=== PATIENT | female | born 2000 | race African-American/Black ===

== ENCOUNTER 2019-08-30 04:01 | Inpatient (IN) | payer OTHER ==
[2019-08-30 04:25] LABS: Absolute Lymphocytes (CBC) 2.1 K/uL (0.7-4.9); Basophils % 0.4 % (0-1.3); Hematocrit 37.7 % (36.0-45.0); Lymphocytes % 13.7 % (15.3-44.8); MPV 8.5 fL (7.6-11.3)
[2019-08-30 04:34] LABS: Albumin 3.6 g/dL (3.4-5.0); Bilirubin Direct 0.2 mg/dL (0-0.2); Bilirubin Total 0.5 mg/dL (0.2-1.0); Potassium 3.5 mmol/L (3.5-5.1); Protein, Total 8.1 g/dL (6.4-8.2)
[2019-08-30] MEDS ORDERED: KETOROLAC 30 MG/ML INJ ONE (04:39)
[2019-08-30] MEDS ORDERED: MORPHINE 2 MG/ML SYR ONE (04:39)
[2019-08-30] MEDS ORDERED: NA CHLORIDE 0.9% 1,000 ML ONE ×3 (04:39→17:53)
[2019-08-30] MEDS ORDERED: ONDANSETRON 4 MG/2 ML VIAL ONE (04:42)
[2019-08-30] MEDS ORDERED: CEFTRIAXONE 1000 MG/VIAL ONE (05:08)
[2019-08-30] MEDS ORDERED: NA CHLORIDE 0.9% 50 ML IV ONE (05:09)
--- NOTE | 2019-08-30 07:54 | ER ---
Nurse's Notes [facility] Name: Bala Kearns Age: 18 yrs Sex: Female : 2000 Arrival Date: 08/30/2019 Time: 04:01 Bed 16 Private MD: Diagnosis: Abdominal tenderness;Elevated white blood cell count;Salpingitis and oophoritis-right;SARS-associated coronavirus as the cause of diseases classified elsewhere-covid 19 positive on 08/20/19 Presentation: 08/29 04:02 Chief complaint: Patient states: Reported pain in the lower abdomen, pt reports having ea diarrhea yesterday, states the pain radiates to her tailbone. EMS reports pt is positive for covid. Coronavirus screen: Prior COVID test collected on: August 20. Ebola Screen: No symptoms or risks identified at this time. Initial Sepsis Screen: Does the patient meet any 2 criteria? No. Patient's initial sepsis screen is negative. Does the patient have a suspected source of infection? No. Patient's initial sepsis screen is negative. Risk Assessment: Do you want to hurt yourself or someone else? Patient reports no desire to harm self or others. Onset of symptoms was August 30, 2019. 04:02 Method Of Arrival: EMS: [facility] ea 04:02 Acuity: JOSE 3 ea Triage Assessment: 04:06 General: Appears uncomfortable, Behavior is appropriate for age. Pain: Complains of ea pain in right lower quadrant and left lower quadrant Pain radiates to buttocks. 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 - Social history:: Smoking status: Patient denies any tobacco usage or history of. Screenin:05 Abuse screen: Denies threats or abuse. Nutritional screening: No deficits noted. ea Tuberculosis screening: No symptoms or risk factors identified. Fall Risk IV access (20 points). Assessment: 04:06 General: Appears uncomfortable, Behavior is crying. Pain: Complains of pain in left ea lower quadrant. Neuro: Level of Consciousness is awake, alert, obeys commands, Oriented to person, place, time, situation. Respiratory: Airway is patent Respiratory effort is even, unlabored, Respiratory pattern is regular, symmetrical. GI: Abdomen is non-distended, Reports diarrhea, nausea. Derm: Skin is pink, warm \T\ dry. 05:12 Reassessment: Patient and/or family updated on plan of care and expected duration. Pain ea level reassessed. Patient is alert, oriented x 3, equal unlabored respirations, skin warm/dry/pink. pt taken to CT. 05:37 Reassessment: Patient and/or family updated on plan of care and expected duration. Pain ea level reassessed. Patient is alert, oriented x 3, equal unlabored respirations, skin warm/dry/pink. Returned from CT. 07:30 Reassessment: US complete. sv 07:35 General: Appears in no apparent distress. comfortable, well developed, Behavior is sv calm, cooperative, appropriate for age. Pain: Denies pain. Neuro: Level of Consciousness is awake, alert, obeys commands, Oriented to person, place, time, situation, Moves all extremities. Full function. Respiratory: Airway is patent Respiratory effort is even, unlabored, Respiratory pattern is regular, symmetrical. Derm: Skin is intact, Skin is pink, warm \T\ dry. 08:36 Reassessment: Patient appears in no apparent distress at this time. No changes from sv previously documented assessment. Patient and/or family updated on plan of care and expected duration. Pain level reassessed. Patient is alert, oriented x 3, equal unlabored respirations, skin warm/dry/pink. 10:06 Reassessment: Patient appears in no apparent distress at this time. No changes from sv previously documented assessment. Patient and/or family updated on plan of care and expected duration. Pain level reassessed. Patient is alert, oriented x 3, equal unlabored respirations, skin warm/dry/pink. 12:11 Reassessment: Patient appears in no apparent distress at this time. Pt sleeping at this sv time. Will continue to monitor. 15:00 Reassessment: Patient appears in no apparent distress at this time. Patient and/or ls4 family updated on plan of care and expected duration. Pain level reassessed. Patient is alert, oriented x 3, equal unlabored respirations, skin warm/dry/pink. 16:00 Reassessment: Patient appears in no apparent distress at this time. Patient and/or ls4 family updated on plan of care and expected duration. Pain level reassessed. Patient is alert, oriented x 3, equal unlabored respirations, skin warm/dry/pink. 17:00 Reassessment: Patient appears in no apparent distress at this time. Patient and/or ls4 family updated on plan of care and expected duration. Pain level reassessed. Patient is alert, oriented x 3, equal unlabored respirations, skin warm/dry/pink. 18:00 Reassessment: Patient appears in no apparent distress at this time. Patient and/or ls4 family updated on plan of care and expected duration. Pain level reassessed. Patient is alert, oriented x 3, equal unlabored respirations, skin warm/dry/pink. 19:00 Reassessment: Patient appears in no apparent distress at this time. Patient and/or ls4 family updated on plan of care and expected duration. Pain level reassessed. Patient is alert, oriented x 3, equal unlabored respirations, skin warm/dry/pink. 20:09 Reassessment: Patient appears in no apparent distress at this time. Patient and/or ls4 family updated on plan of care and expected duration. Pain level reassessed. Patient is alert, oriented x 3, equal unlabored respirations, skin warm/dry/pink. Vital Signs: 04:02 BP 126 / 82; Pulse 81; Resp 18; Temp 98.6; Pulse Ox 100% on R/A; Weight 63.5 kg; Height ea 5 ft. 2 in. (157.48 cm); Pain 10/10; 05:37 BP 113 / 69; Pulse 80; Resp 18; Pulse Ox 100% ; ea 07:49 BP 108 / 65; Pulse 66; Resp 16; Pulse Ox 100% ; sv 10:20 BP 111 / 66; Pulse 67; Resp 16; Pulse Ox 100% ; sv 11:32 BP 108 / 66; Pulse 65; Resp 14; Pulse Ox 95% ; sv 13:34 BP 118 / 71; Pulse 99; Resp 16; Temp 97.5(O); Pulse Ox 96% ; sv 14:00 BP 102 / 65; Pulse 64; Resp 16; Pulse Ox 100% ; sv 15:00 BP 103 / 57; Pulse 70; Resp 16; Temp 97.4(O); Pulse Ox 100% on R/A; Pain 0/10; ls4 16:00 BP 111 / 70; Pulse 71; Resp 16; Temp 98.0(T); Pulse Ox 100% on R/A; ls4 18:00 BP 115 / 70; Pulse 66; Resp 16; Pulse Ox 100% on R/A; ls4 19:00 BP 110 / 75; Pulse 66; Resp 16; Pulse Ox 99% on R/A; ls4 20:00 BP 104 / 65; Pulse 68; Resp 16; Pulse Ox 99% on R/A; ls4 04:02 Body Mass Index 25.61 (63.50 kg, 157.48 cm) ea ED Course: 04:01 Patient arrived in ED. ea 04:05 Triage completed. ea 04:05 Arm band placed on right wrist. Patient placed in an exam room, on a stretcher, on ea pulse oximetry. 04:05 Patient has correct armband on for positive identification. Bed in low position. Call ea light in reach. 04:06 Toro Story MD is Attending Physician. bong 04:08 Inserted saline lock: 20 gauge in left antecubital area, using aseptic technique. Blood ds4 collected. 04:18 Milla Astudillo, RN is Primary Nurse. ea 05:39 CT Abd/Pelvis - IV Contrast Only In Process Unspecified. EDMS 07:30 US Transvaginal Study (Probe) Sent. sv 07:49 US Transvaginal Study (Probe) In Process Unspecified. EDMS 07:49 Primary Nurse role handed off by Milla Astudillo, HARSH sv 07:49 Bettye Tuttle RN is Primary Nurse. sv 07:50 Taco Hinojosa DO is Hospitalizing Provider. bong 08:20 First set of blood cultures drawn by me. sv 08:29 Second set of blood cultures drawn by me. sv 08:30 Assist provider with pelvic exam: Set up pelvic tray. Performed by Toro Story MD sv Specimens sent to lab. Patient tolerated well. 10:06 Awaiting bed assignment. sv 11:32 Awaiting bed assignment. sv 12:11 Awaiting bed assignment. sv 14:29 Awaiting bed assignment. sv 14:31 Report given to Suni HOUSE. sv 18:08 GC (GONORR/CHLAMYDIA) Probe: [employer] ordered verbal Sent. ls4 Administered Medications: 04:41 Drug: NS 0.9% 1000 ml Route: IV; Rate: 1 bolus; Site: left antecubital; ea 05:45 Follow up: Response: No adverse reaction; IV Status: Completed infusion; IV Intake: ea 1000ml 04:41 Drug: TORadol 30 mg Route: IVP; Site: left antecubital; ea 05:46 Follow up: Response: No adverse reaction; Pain is decreased ea 04:41 Drug: morphine 2 mg Route: IVP; Site: left antecubital; ea 05:46 Follow up: Response: No adverse reaction; Pain is decreased ea 04:41 Drug: Zofran (Ondansetron) 4 mg Route: IVP; Site: left antecubital; ea 05:46 Follow up: Response: No adverse reaction ea 05:31 Drug: Rocephin 1 grams Route: IV; Rate: per protocol; Site: left antecubital; ea 07:38 Not Given (Duplicate Order): Zithromax 1 grams PO once bong 08:36 Drug: Flagyl 500 mg Volume: 100 ml; Route: IVPB; Rate: 200 ml/hr; Infused Over: 30 sv mins; Site: left antecubital; 09:30 Follow up: Response: No adverse reaction; IV Status: Completed infusion; IV Intake: sv 100ml 08:36 Drug: NS 0.9% 1000 ml Route: IV; Rate: 125 ml/hr; Site: left antecubital; sv 18:01 Follow up: IV Status: Infusion continued; IV Intake: 1000ml ls4 10:06 Drug: Unasyn 3 grams Route: IVPB; Infused Over: 30 mins; Site: left antecubital; sv 10:35 Follow up: Response: No adverse reaction; IV Status: Completed infusion; IV Intake: sv 100ml 18:08 Drug: Zithromax 1000 mg Route: PO; ls4 Intake: 05:45 IV: 1000ml; Total: 1000ml. ea 09:30 IV: 100ml; Total: 1100ml. sv 10:35 IV: 100ml; Total: 1200ml. sv 18:01 IV: 1000ml; Total: 2200ml. ls4 Outcome: 07:53 Decision to Hospitalize by Provider. bong 21:36 Patient left the ED. fc Signatures: Dispatcher [employer] Bettye Escobar RN RN Toro Taveras MD MD cha Chretien, Fany, RN RN fc Keanu Barakat ds4 Milla Astudillo RN RN Suni Wright RN RN ls4
--- NOTE | 2019-08-30 07:54 | EDPHYS ---
Physician Documentation [facility] Name: Bala Kearns Age: 18 yrs Sex: Female : 2000 Arrival Date: 08/30/2019 Time: 04:01 Bed 16 Private MD: ED Physician Toro Story HPI: 08/29 04:17 This 18 yrs old Black Female presents to ER via EMS with complaints of sudden onset bong abdominal pain. 04:17 This 18 yrs old Black Female presents to ER via EMS with complaints of lower abd pain. bong 04:17 The patient presents with abdominal pain in the lower abdomen, abdominal distention in bong the lower abdomen. Onset: The symptoms/episode began/occurred just prior to arrival. 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 - Social history:: Smoking status: Patient denies any tobacco usage or history of. ROS: 04:19 Constitutional: Negative for fever, chills, and weight loss, Eyes: Negative for injury, bong pain, redness, and discharge, ENT: Negative for injury, pain, and discharge, Neck: Negative for injury, pain, and swelling, Cardiovascular: Negative for chest pain, palpitations, and edema, Respiratory: Negative for shortness of breath, cough, wheezing, and pleuritic chest pain, Back: Negative for injury and pain, : Negative for injury, bleeding, discharge, and swelling, MS/Extremity: Negative for injury and deformity, Skin: Negative for injury, rash, and discoloration, Neuro: Negative for headache, weakness, numbness, tingling, and seizure, Psych: Negative for depression, anxiety, suicide ideation, homicidal ideation, and hallucinations, Allergy/Immunology: Negative for hives, rash, and allergies, Endocrine: Negative for neck swelling, polydipsia, polyuria, polyphagia, and marked weight changes, Hematologic/Lymphatic: Negative for swollen nodes, abnormal bleeding, and unusual bruising. 04:19 Abdomen/GI: Positive for abdominal pain, abdominal cramps, abdominal distension, of the right lower quadrant and left lower quadrant. Exam: 04:19 Constitutional: This is a well developed, well nourished patient who is awake, alert, bong and in no acute distress. Head/Face: Normocephalic, atraumatic. Eyes: Pupils equal round and reactive to light, extra-ocular motions intact. Lids and lashes normal. Conjunctiva and sclera are non-icteric and not injected. Cornea within normal limits. Periorbital areas with no swelling, redness, or edema. ENT: Nares patent. No nasal discharge, no septal abnormalities noted. Tympanic membranes are normal and external auditory canals are clear. Oropharynx with no redness, swelling, or masses, exudates, or evidence of obstruction, uvula midline. Mucous membranes moist. Neck: Trachea midline, no thyromegaly or masses palpated, and no cervical lymphadenopathy. Supple, full range of motion without nuchal rigidity, or vertebral point tenderness. No Meningismus. Chest/axilla: Normal chest wall appearance and motion. Nontender with no deformity. No lesions are appreciated. Cardiovascular: Regular rate and rhythm with a normal S1 and S2. No gallops, murmurs, or rubs. Normal PMI, no JVD. No pulse deficits. Respiratory: Lungs have equal breath sounds bilaterally, clear to auscultation and percussion. No rales, rhonchi or wheezes noted. No increased work of breathing, no retractions or nasal flaring. Back: No spinal tenderness. No costovertebral tenderness. Full range of motion. Skin: Warm, dry with normal turgor. Normal color with no rashes, no lesions, and no evidence of cellulitis. MS/ Extremity: Pulses equal, no cyanosis. Neurovascular intact. Full, normal range of motion. Neuro: Awake and alert, GCS 15, oriented to person, place, time, and situation. Cranial nerves II-XII grossly intact. Motor strength 5/5 in all extremities. Sensory grossly intact. Cerebellar exam normal. Normal gait. Psych: Awake, alert, with orientation to person, place and time. Behavior, mood, and affect are within normal limits. 04:19 Abdomen/GI: Inspection: abdomen appears normal, Bowel sounds: active, Palpation: mild abdominal tenderness, moderate abdominal tenderness, in the right lower quadrant and left lower quadrant, Liver: no appreciated palpable abnormalities, Hernia: not appreciated. 08:04 : CVA tenderness, is absent, Pelvic Exam: External exam: is normal, no appreciated bong Bartholin's cyst, no erythema, not excoriated, no evidence of foreign body, no lesions, no ulcerations, no warts seen, Speculum exam: no bleeding is noted, no cervicitis, os that is closed, bimanual exam reveals cervical motion tenderness, os that is closed, normal sized uterus, discharge, yellow, the nurse was present for the exam, Bladder: is normal, Sexual behavior: the patient is sexually active, and reports a single partner. Vital Signs: 04:02 BP 126 / 82; Pulse 81; Resp 18; Temp 98.6; Pulse Ox 100% on R/A; Weight 63.5 kg; Height ea 5 ft. 2 in. (157.48 cm); Pain 10/10; 05:37 BP 113 / 69; Pulse 80; Resp 18; Pulse Ox 100% ; ea 07:49 BP 108 / 65; Pulse 66; Resp 16; Pulse Ox 100% ; sv 10:20 BP 111 / 66; Pulse 67; Resp 16; Pulse Ox 100% ; sv 11:32 BP 108 / 66; Pulse 65; Resp 14; Pulse Ox 95% ; sv 13:34 BP 118 / 71; Pulse 99; Resp 16; Temp 97.5(O); Pulse Ox 96% ; sv 14:00 BP 102 / 65; Pulse 64; Resp 16; Pulse Ox 100% ; sv 15:00 BP 103 / 57; Pulse 70; Resp 16; Temp 97.4(O); Pulse Ox 100% on R/A; Pain 0/10; ls4 16:00 BP 111 / 70; Pulse 71; Resp 16; Temp 98.0(T); Pulse Ox 100% on R/A; ls4 18:00 BP 115 / 70; Pulse 66; Resp 16; Pulse Ox 100% on R/A; ls4 19:00 BP 110 / 75; Pulse 66; Resp 16; Pulse Ox 99% on R/A; ls4 20:00 BP 104 / 65; Pulse 68; Resp 16; Pulse Ox 99% on R/A; ls4 04:02 Body Mass Index 25.61 (63.50 kg, 157.48 cm) ea MDM: 04:06 Patient medically screened. [facility] 04:20 Data reviewed: vital signs, nurses notes, lab test result(s), radiologic studies, CT bong scan. 04:20 Differential diagnosis: appendicitis, cholecystitis, Cholelithiasis, Ectopic , bong non-specific abd pain, Ovarian Torsion. Data interpreted: equipment monitor phototypesetting: rate is 81 beats/min, rhythm is regular, Pulse oximetry: on room air is 100 %. Test interpretation: by ED physician or midlevel provider:. Counseling: I had a detailed discussion with the patient and/or guardian regarding: the historical points, exam findings, and any diagnostic results supporting the discharge/admit diagnosis, lab results, radiology results, the need for outpatient follow up, for definitive care, an OB/Gyne specialist. 07:41 Physician consultation: Sylvia Loo MD and will see patient in the hospital, admit bong to the hospitalist. ED course: dr betts want hospitalist to admit, begin antibiotics, ivf and pain meds. 08:04 ED course: covid positive 08/20/19.. [facility] 08/29 04:02 Order name: Basic Metabolic Panel; Complete Time: 05:52 08/29 04:02 Order name: CBC with Diff; Complete Time: 05:52 08/29 04:02 Order name: Hepatic Function; Complete Time: 05:52 08/29 04:02 Order name: Lipase; Complete Time: 05:52 08/29 04:34 Order name: Urine Culture [facility] 08/29 06:28 Order name: ESR; Complete Time: 07:56 jmm 08/29 04:16 Order name: CT Abd/Pelvis - IV Contrast Only [facility] 08/29 07:56 Order name: Procalcitonin [facility] 08/29 07:56 Order name: Lactate [facility] 08/29 07:56 Order name: Blood Culture Adult (2) [facility] 08/29 18:00 Order name: GC (GONORR/CHLAMYDIA) Probe: Mat Cutter ordered verbal ls4 08/29 04:02 Order name: IV Saline Lock; Complete Time: 04:08 08/29 04:02 Order name: Labs collected and sent; Complete Time: 04:08 08/29 04:02 Order name: Urine Dipstick-Ancillary (obtain specimen); Complete Time: 04:42 08/29 04:02 Order name: Urine Test (obtain specimen); Complete Time: 04:42 08/29 06:37 Order name: US Transvaginal Study (Probe) [facility] 08/29 06:37 Order name: Pelvic Exam Setup; Complete Time: 07:04 bong Administered Medications: 04:41 Drug: NS 0.9% 1000 ml Route: IV; Rate: 1 bolus; Site: left antecubital; ea 05:45 Follow up: Response: No adverse reaction; IV Status: Completed infusion; IV Intake: ea 1000ml 04:41 Drug: TORadol 30 mg Route: IVP; Site: left antecubital; ea 05:46 Follow up: Response: No adverse reaction; Pain is decreased ea 04:41 Drug: morphine 2 mg Route: IVP; Site: left antecubital; ea 05:46 Follow up: Response: No adverse reaction; Pain is decreased ea 04:41 Drug: Zofran (Ondansetron) 4 mg Route: IVP; Site: left antecubital; ea 05:46 Follow up: Response: No adverse reaction ea 05:31 Drug: Rocephin 1 grams Route: IV; Rate: per protocol; Site: left antecubital; ea 07:38 Not Given (Duplicate Order): Zithromax 1 grams PO once [facility] 08:36 Drug: Flagyl 500 mg Volume: 100 ml; Route: IVPB; Rate: 200 ml/hr; Infused Over: 30 sv mins; Site: left antecubital; 09:30 Follow up: Response: No adverse reaction; IV Status: Completed infusion; IV Intake: sv 100ml 08:36 Drug: NS 0.9% 1000 ml Route: IV; Rate: 125 ml/hr; Site: left antecubital; sv 18:01 Follow up: IV Status: Infusion continued; IV Intake: 1000ml ls4 10:06 Drug: Unasyn 3 grams Route: IVPB; Infused Over: 30 mins; Site: left antecubital; sv 10:35 Follow up: Response: No adverse reaction; IV Status: Completed infusion; IV Intake: sv 100ml 18:08 Drug: Zithromax 1000 mg Route: PO; ls4 Disposition: 08/30/19 07:53 Hospitalization ordered by Taco Hinojosa for Inpatient Admission. Preliminary diagnosis are Abdominal tenderness, Elevated white blood cell count, Salpingitis and oophoritis - right, SARS-associated coronavirus as the cause of diseases classified elsewhere - covid 19 positive on 08/20/19. - Bed requested for Telemetry/MedSurg (Inpatient). - Status is Inpatient Admission. fc - Condition is Stable. - Problem is new. - Symptoms have improved. Signatures: Dispatcher [employer] EDAL Bettye Tuttle, RN Vannesa Lindquist RN RN dw Anderson, Corey, MD MD cha Chretien, Felicia, RN RN Milla Astudillo RN RN ea Stewart, Lisa RN RN ls4 Corrections: (The following items were deleted from the chart) 06:29 06:28 WESTERGREN SEDRATE+H.LAB.BRZ ordered. EDAL EDMS 06:36 06:32 Pelvis Complete ordered. EDAL EDMS 08:03 07:53 Hospitalization Ordered by Taco Hinojosa DO for Inpatient Admission. Preliminary bong diagnosis is Abdominal tenderness; Elevated white blood cell count; Salpingitis and oophoritis - right. Bed requested for Telemetry/MedSurg (Inpatient). Status is Inpatient Admission. Condition is Stable. Problem is new. Symptoms have improved. bong 08:55 06:38 GC (Gonorr/Clamydia) Probe+R.LAB.BRZ ordered. EDAL EDMS 18:45 08:03 08/30/2019 07:53 Hospitalization Ordered by Taco Hinojosa DO for Inpatient dw Admission. Preliminary diagnosis is Abdominal tenderness; Elevated white blood cell count; Salpingitis and oophoritis - right; SARS-associated coronavirus as the cause of diseases classified elsewhere - covid 19 positive on 08/20/19. Bed requested for Telemetry/MedSurg (Inpatient). Status is Inpatient Admission. Condition is Stable. Problem is new. Symptoms have improved. bong 21:36 18:45 08/30/2019 07:53 Hospitalization Ordered by Taco Hinojosa DO for Inpatient fc Admission. Preliminary diagnosis is Abdominal tenderness; Elevated white blood cell count; Salpingitis and oophoritis - right; SARS-associated coronavirus as the cause of diseases classified elsewhere - covid 19 positive on 08/20/19. Bed requested for Telemetry/MedSurg (Inpatient). Status is Inpatient Admission. Condition is Stable. Problem is new. Symptoms have improved. dw
[2019-08-30] MEDS ORDERED: METRONIDAZOLE 500mg IVPB 500 MG/100 ML BAG IV ONE (08:10)
[2019-08-30] MEDS ORDERED: AMPICILLIN/SULBACT 3 GM in NA CHLORIDE 0.9% 100 ML IVPB ONE (08:15)
--- NOTE | 2019-08-30 08:32 | RAD REPORT ---
EXAM DESCRIPTION: US - Transvaginal Study Probe - 08/30/2019 7:48 am CLINICAL HISTORY: ABD PAIN COMPARISON: Abdomen Pelvis W Contrast dated 08/30/2019 TECHNIQUE: Endovaginal sonography was performed. FINDINGS: Endovaginal sonography was performed and correlated with the earlier CT study. Uterine siz e is normal. No myometrial mass identifiable. Endometrial stripe is 6 mm with no focal endometrial ab normality identifiable. Both ovaries are identifiable. Blood flow seen in the ovarian stroma. A 19 millimeter right ovarian c yst is identified low-level internal echoes. Heterogeneous poorly defined tissue is seen in the right adnexa. This has a somewhat tubular configuration consistent with the CT finding. Tubo-ovarian absce ss would be a primary consideration and can be correlated with the lab and clinical findings. Hemorrh agic cyst is not suspected. No abnormal free fluid identifiable. IMPRESSION: No uterine abnormality or ovarian parenchymal abnormality seen. Heterogeneous poorly defined tissue in the right adnexa. Findings when correlated with the CT study a re suspicious for tubo-ovarian abscess.
--- NOTE | 2019-08-30 10:13 | RAD REPORT ---
EXAM DESCRIPTION: CT - Abdomen Pelvis W Contrast - 08/30/2019 6:38 am CLINICAL HISTORY: The patient is 18 years old and is Female; ABD PAIN TECHNIQUE: Axial computed tomography images of the abdomen and pelvis with intravenous contrast. S agittal and coronal reformatted images were created and reviewed. This CT exam was performed using one or more of the following dose reduction techniques: automated exposure control, adjustment of t he mA and/or kV according to patient size, and/or use of iterative reconstruction technique. COMPARISON: No relevant prior studies available. FINDINGS: LUNG BASES: Unremarkable. No mass. No consolidation. ABDOMEN: LIVER: Unremarkable. No mass. GALLBLADDER AND BILE DUCTS: No calcified stones. No ductal dilation. PANCREAS: No ductal dilation. No mass. SPLEEN: Unremarkable. ADRENALS: Unremarkable. No mass. KIDNEYS AND URETERS: Unremarkable. The kidneys enhance symmetrically. No obstructing renal or ur eteral calculus is seen. No hydronephrosis or hydroureter. No perinephric fluid or stranding. STOMACH AND BOWEL: The stomach is moderately distended with food contents. The small bowel dista lly is fluid-filled and prominent with suggestion of mucosal thickening. The remainder the small santi l is normal in appearance. A moderate amount stool is present throughout colon. There is no bowel obs truction. PELVIS: APPENDIX: The visualized portions of the appendix appear normal. However, the tip is not seen. BLADDER: Unremarkable. No mass. REPRODUCTIVE: A 1.9 cm right ovarian cyst is present. Tubular structure within the right lower quadrant is present concerning for dilated fallopian. The uterus is unremarkable. ABDOMEN and PELVIS: INTRAPERITONEAL SPACE: A moderate amount of free fluid is present within the pelvis. BONES/JOINTS: No acute fracture. SOFT TISSUES: The soft tissues are normal. VASCULATURE: Unremarkable. No abdominal aortic aneurysm. LYMPH NODES: Unremarkable. No enlarged lymph nodes. IMPRESSION: 1. Findings suggest dilated fallopian tube on the right. Moderate fluid and inflammation is also present within the right lower quadrant and adnexa. Findings may be secondary to a tubo-ovar ashley abscess. Further evaluation with pelvic ultrasound is recommended. 2. Visualized portions of the appendix are normal. However, the appendix is not seen in its entirety. Given the inflammation and fluid within the right lower quadrant, an orally contrasted study may be useful to further delineate the entire appendix. 3. Inflamed distal small bowel loops suggesting an enteritis. Electronically signed by: Ruchi Mandujano MD 08/30/2019 6:13 AM CDT Due to temporary technical issues with the PACS/Fluency reporting system, reports are being signed by the in house radiologist without review as a courtesy to ensure prompt reporting. The interpreting r adiologist is fully responsible for the content of the report.
[2019-08-30] MEDS ORDERED: AZITHROMYCIN 250 MG TAB ONE (17:53)
--- NOTE | 2019-08-30 18:27 | P.HP ---
Certification for Inpatient With expected LOS: >2 Midnights Patient will require the following post-hospital care: None Practitioner: I am a practitioner with admitting privileges, knowledge of patient current condition, hospital course, and medical plan of care. Services: Services provided to patient in accordance with Admission requirements found in Title 42 Section 412.3 of the Code of Federal Regulations <Thong rAmenta - Last Filed: 08/30/19 18:33> Patient History Date of Service: 08/30/19 Reason for admission: Tubal abscess History of Present Illness: 18-year-old female with no significant past medical history presents to the emergency room complaining of sudden onset of right pelvic pain. Patient states that she woke up this morning with complaints of lower abdominal pain. Patient tested positive for COVID and was self quarantine eating at her great grandmother's house alone. Patient has no respiratory issues or c omplications from Covid so far. In the emergency room CT abdomen pelvis with findings suggest dilated fallopian tube on the right. Moderate fluid and inflammation is also present within the right lower quadrant and adnexa. Findings may be secondary to a tubo-ovarian abscess. Transvaginal ultrasound confirming CT findings. relief map modeler was consulted and patient is to undergo surgical procedure to address tubal abscess. On physical exam patient is calm. Abdominal pain has improved after pain medication. She is alert and oriented x3 and in no distress. In the ER lab work shows a slightly elevated white cell count of 15.7 with an elevated ESR of 53. Vitals are stable and patient is afebrile. Patient be started on IV antibiotics. Patient will be admitted and further evaluated. Home medications list reviewed: Yes - Past Medical/Surgical History Diabetic: No Past Medical History: Patient denies medical history Past Surgical History: Patient denies surgical history - Family History Family History: Reviewed- Non-Contributory - Social History Smoking Status: Never smoker Alcohol use: No CD- Drugs: No Caffeine use: No Place of Residence: Home <CarihermanchatonancyThong - Last Filed: 08/30/19 18:33> Date of Service: 08/30/19 - Past Medical/Surgical History Past Medical History: Patient denies medical history Psychosocial/ Personal History: Patient lives at home <Taco Hinojosa - Last Filed: 08/30/19 19:04> Allergies No Known Allergies Allergy (Unverified 08/30/19 06:29) Review of Systems General: As per HPI Eyes: Unremarkable ENT: Unremarkable Respiratory: Unremarkable Cardiovascular: Unremarkable Gastrointestinal: Unremarkable Genitourinary: As per HPI Musculoskeletal: Unremarkable Neurological: Unremarkable <Thong Armenta - Last Filed: 08/30/19 18:33> Physical Examination - Vital Signs Temperature: 98.6 F Blood Pressure: 108/65 Pulse: 66 Respirations: 18 Pulse Ox (%): 100 (RA) - Physical Exam General: Alert, In no apparent distress, Oriented x3 HEENT: Atraumatic, Normocephalic, PERRLA Neck: Supple, Other (Trachea midline) Respiratory: Clear to auscultation bilaterally, Normal air movement Cardiovascular: No edema, Normal pulses, Regular rate/rhythm, Normal S1 S2 Gastrointestinal: Normal bowel sounds, Soft and benign, Non-distended Musculoskeletal: No clubbing, No swelling, No contractures Integumentary: No rashes, No breakdown, No significant lesion Neurological: Normal gait, Normal speech, Normal strength at 5/5 x4 extr Urinary: Other (Mild right pelvic pain with palpation) - Studies Laboratory Data (last 24 hrs) 08/30/19 04:05: WBC 15.7 H, Hgb 12.9, Hct 37.7, Plt Count 357 08/30/19 04:05: Sodium 141, Potassium 3.5, BUN 6 L, Creatinine 0.89, Glucose 94, Total Bilirubin 0.5, AST 10 L, ALT 11 L, Alkaline Phosphatase 64, Lipase 78 <Thong Armenta - Last Filed: 08/30/19 18:33> - Studies Laboratory Data (last 24 hrs) 08/30/19 04:05: WBC 15.7 H, Hgb 12.9, Hct 37.7, Plt Count 357 08/30/19 04:05: Sodium 141, Potassium 3.5, BUN 6 L, Creatinine 0.89, Glucose 94, Total Bilirubin 0.5, AST 10 L, ALT 11 L, Alkaline Phosphatase 64, Lipase 78 <Taco Hinojosa - Last Filed: 08/30/19 19:04> Assessment and Plan - Plan Impression: Tubal abscess: Plan: Tubal abscess: CT scan with findings suggestive of tubal abscess verified by transvaginal ultrasound. jacquard lace weaver consulted. Patient is continue IV antibiotics of the Unasyn and Flagyl for now with possible surgical intervention to remove abscess if necessary. Will continue IV fluids and pain control. Will await pending cultures blood and urine. Discharge Plan: Home Plan to discharge in: 48 Hours - Advance Directives Does patient have a Living Will: No Does patient have a Durable POA for Healthcare: No - Code Status/Comfort Care Code Status Assessed: Yes Time Spent Managing Pts Care (In Minutes): 55 <Thong Armenta - Last Filed: 08/30/19 18:33> - Plan Case discussed at length with PA. Agree with evaluation, assessment and plan of care. Case also discuss with gynecology. Patient will continue with IV antibiotic therapy-Unasyn and Flagyl. Blood cultures obtained. Await recommendations by gynecology. Anticipate improvement with antibiotics. If no improvement patient may require surgical intervention. I will turn the service over to the hospitalist team tomorrow. I will go over the plan of care with him. <Taco Hinojosa - Last Filed: 08/30/19 19:04>
[2019-08-30] MEDS ORDERED: TRAMADOL HCL 50 MG TAB PO PRN (20:03)
[2019-08-30] MEDS ORDERED: KETOROLAC 30 MG/ML INJ IV PRN (20:03)
[2019-08-30] MEDS ORDERED: HYDROCODONE/APAP 7.5/325 MG TAB PO PRN (20:03)
[2019-08-30] MEDS: AMPICILLIN/SULBACT 3 GM in NA CHLORIDE 0.9% 100 ML IVPB SCH ×2 (20:03→22:50)
[2019-08-30] MEDS ORDERED: ONDANSETRON 4 MG/2 ML VIAL IV PRN (20:03)
[2019-08-30] MEDS ORDERED: ACETAMINOPHEN 500 MG TAB PO PRN (20:03)
[2019-08-30] MEDS: METRONIDAZOLE 500mg IVPB 500 MG/100 ML BAG IV SCH ×2 (22:02→22:48)
[2019-08-30] MEDS ORDERED: AMPICILLIN/SULBACTAM 3GM/VIAL ONE (22:29)
[2019-08-30 23:09] VITALS: BMI 25.6
[2019-08-30] MEDS ORDERED: NA CHLORIDE 0.9% 100 ML IV ONE (23:20)
[2019-08-31] MEDS ORDERED: METRONIDAZOLE 500mg IVPB 500 MG/100 ML BAG IV SCH (01:00)
[2019-08-31 06:32] LABS: Absolute Lymphocytes (CBC) 2.1 K/uL (0.7-4.9); Basophils % 0.7 % (0-1.3); Hematocrit 35.6 % (36.0-45.0); Lymphocytes % 17.8 % (15.3-44.8); MPV 8.3 fL (7.6-11.3); RBC Red Blood Cell Count 4.37 M/uL (3.86-4.86)
[2019-08-31 06:52] LABS: ALT/SGPT 12 U/L (12-78); AST/SGOT 13 U/L (15-37); Albumin 3.2 g/dL (3.4-5.0); Alkaline Phosphatase 51 U/L (45-117); BUN Blood Urea Nitrogen 5 mg/dL (7-18); Bicarbonate 27 mmol/L (21-32); Bilirubin Total 0.7 mg/dL (0.2-1.0); Glucose Level 83 mg/dL (74-106); Magnesium 2.1 mg/dL (1.8-2.4); Potassium 3.5 mmol/L (3.5-5.1); Protein, Total 7.3 g/dL (6.4-8.2); Sodium Level 143 mmol/L (136-145)
[2019-08-31 08:44] LABS: Urine Appearance CLEAR; Urine Bilirubin NEGATIVE (NEG); Urine Blood NEGATIVE (NEG); Urine Color YELLOW; Urine Glucose NEGATIVE (NEG); Urine Protein NEGATIVE (NEG); Urine pH 6.5 (5.0-7.0)
[2019-08-31] MEDS: METRONIDAZOLE 500mg IVPB 500 MG/100 ML BAG IV SCH ×2 (08:46→16:02)
[2019-08-31 08:49] LABS: Urine Microscopic Reflex ORDER UMIC
[2019-08-31 08:59] LABS: Urine Bacteria <20 /HPF (<20); Urine RBC <5 /HPF (NONE SEEN)
[2019-08-31 09:00] LABS: Urine Culture Reflex Order REFLEXED
[2019-08-31] MEDS: AMPICILLIN/SULBACT 3 GM in NA CHLORIDE 0.9% 100 ML IVPB SCH ×2 (10:13→16:36)
--- NOTE | 2019-08-31 10:18 | P.CNS ---
Date of Consult: 08/30/[address] Sylvia Loo service: This 18 year old female patient is lying prone talking on her cell phone and in no distress. She presented to the ED this am with complaints of severe pelvic pain for about 48 hours which was getting worse. Upon admission she was afebrile, no nausea or vomiting. A CT abd and pelvis and TVUS were done, confirming a probable Right TOA/PID, WBC of 15.3. She had been staying alone at home as she was quarantining after testing positive for COVID with symptoms of fatigue and malaise, loss of taste and smell, on August 20, for the last 16 days. Those symptoms had completely resolved during her quarantine. She is sexually active with a new partner about 1 1/2 months, using condoms for control. She usually has normal, monthly menstrual cycles, but these became irregular during July, since she had 2 cycles in the month of July, very unusual for her, and another with LMP 08/15/2019. She denies any dysmenorrhea or dyspareunia. Her abdominal exam is grossly normal, no pain to light palpation. She used Plan B x 1 dose at the beginning of July, likely causing her irregular bleeding. She has already been given Rocephin 1 gm IV, Unasyn and Flagyl IV. Recommend 1 gm Azithromycin PO now. Swab for GC was collected during her exam upon admission. She will be admitted to the 4th floor due to her COVID status and continue IV antibiotics. Do not recommend surgical intervention at this time since she is now pain free and afebrile. Plan to discharge tomorrow if her WBC is coming down and continue PO antibiotics for [address] scan and TVUS in 1 week to monitor with f/u in our office.
--- NOTE | 2019-08-31 11:13 | P.PN ---
Subjective Date of Service: 08/31/19 Chief Complaint: Tubal abscess Subjective: No new changes Review of Systems 10-point ROS is otherwise unremarkable Physical Examination - Vital Signs Temperature: 97.2 F Blood Pressure: 121/66 Pulse: 92 Respirations: 16 Pulse Ox (%): 100 - Physical Exam General: Alert, In no apparent distress, Oriented x3 HEENT: Atraumatic, Normocephalic Neck: Supple, 2+ carotid pulse no bruit Respiratory: Clear to auscultation bilaterally, Normal air movement Cardiovascular: Normal pulses, Regular rate/rhythm Capillary refill: <2 Seconds Gastrointestinal: Soft and benign, W/out hepatosplenomegaly Musculoskeletal: No clubbing, No swelling Integumentary: No rashes Neurological: Normal speech, Normal strength at 5/5 x4 extr Lymphatics: No axilla or inguinal lymphadenopathy - Studies Laboratory Tests 08/30/19 08/30/19 08/30/19 04:05 04:05 04:05 WBC 15.7 H RBC 4.60 Hgb 12.9 Hct 37.7 MCV 82.0 MCH 28.0 MCHC 34.2 RDW 13.5 Plt Count 357 MPV 8.5 Neutrophils % 79.8 H Lymphocytes % 13.7 L Monocytes % 5.1 Eosinophils % 1.0 Basophils % 0.4 Absolute Neutrophils 12.5 H Absolute Lymphocytes 2.1 Absolute Monocytes 0.8 Absolute Eosinophils 0.2 Absolute Basophils 0.1 ESR [place]gren 53 H Sodium 141 Potassium 3.5 Chloride 106 Carbon Dioxide 25 BUN 6 L Creatinine 0.89 Estimated GFR 81 L Glucose 94 Lactic Acid Calcium 9.3 Total Bilirubin 0.5 Direct Bilirubin 0.2 AST 10 L ALT 11 L Alkaline Phosphatase 64 Serum Total Protein 8.1 Albumin 3.6 Globulin 4.5 H Albumin/Globulin Ratio 0.8 L Lipase 78 Procalcitonin C.trachomatis RNA (TMA) N.gonorrhoeae RNA (TMA) 08/30/19 08/30/19 08/30/19 06:37 08:29 08:29 WBC RBC Hgb Hct MCV MCH MCHC RDW Plt Count MPV Neutrophils % Lymphocytes % Monocytes % Eosinophils % Basophils % Absolute Neutrophils Absolute Lymphocytes Absolute Monocytes Absolute Eosinophils Absolute Basophils ESR W[place]gren Sodium Potassium Chloride Carbon Dioxide BUN Creatinine Estimated GFR Glucose Lactic Acid 0.8 Calcium Total Bilirubin Direct Bilirubin AST ALT Alkaline Phosphatase Serum Total Protein Albumin Globulin Albumin/Globulin Ratio Lipase Procalcitonin < 0.05 C.trachomatis RNA (TMA) Cancelled N.gonorrhoeae RNA (TMA) Cancelled Assessment & Plan Physician Review Additional Text: Pelvic inflammatory disease with likely tubo-ovarian abscess Appreciate help from OBGYN Continue antibiotic Pain controlled well CT scan with findings suggestive of tubal abscess verified by transvaginal ultrasound COVID 19 Asymptomatic Monitor closely Not hypoxic Plan Possible Dc in a.m. if afebrile and pain is controlled Dc with antibiotics for 2 weeks time Follow up with OBGYN Time Spent Managing Pts Care (In Minutes): 38
--- NOTE | 2019-08-31 12:21 | P.CNS ---
Date of Consult: 08/31/19 Subjective: Patient is a 18-year-old female with no significant past medical history who presents to the ED where the worsening right pelvic pain. Patient examined at bedside. Patient reports about 4 days ago, waking up in the middle of the night with severe right sided pelvic pain. Patient also tested positive for Covid 19 on August 20 with symptoms of loss of smell and taste which have completely resolved. Patient found to have leukocytosis and tubal ovarian abscess which I have been consulted for. Past medical/surgical history: Denies Family history: noncontributory Social history: Denies tobacco and alcohol use. Reports sexual activity with one partner Allergies: NKDA Active Medications Acetaminophen (Tylenol -Extra Strength) 500 mg PO Q4HP PRN PRN Reason: TEMP > 101' F Stop: 09/29/19 20:04 Hydrocodone Bitart/Acetaminophen ([place] 7.5/325 Mg) 1 tab PO Q6H PRN PRN Reason: Pain scale 5-7 (Moderate) Stop: 09/29/19 20:04 Enoxaparin Sodium (Lovenox 40 Mg Inj) 40 mg SQ DAILY [facility] Stop: 09/30/19 09:01 Ampicillin Sodium/Sulbactam (Sodium 3 gm/ Sodium Chloride) 100 mls @ 200 mls/hr IVPB Q8HR GIUSEPPE; Protocol Stop: 09/29/19 20:04 Last Admin: 08/31/19 10:13 Dose: 100 mls Documented by: Metronidazole/Sodium Chloride (Flagyl 500mg/100 Ml Iv Premix) 500 mg in 100 mls @ 200 mls/hr IV Q8HR GIUSEPPE; Protocol Stop: 09/29/19 20:04 Last Admin: 08/31/19 08:46 Dose: 100 mls Documented by: Ketorolac Tromethamine (Toradol) 30 mg IV Q8H PRN PRN Reason: Pain scale 5-7 (Moderate) Stop: 09/04/19 20:04 Ondansetron HCl (Zofran) 4 mg IV Q6HP PRN PRN Reason: NAUSEA / VOMITING Stop: 09/29/19 20:04 Sodium Chloride (Normal Saline Flush) 10 ml IV BID GIUSEPPE Stop: 09/29/19 21:01 Last Admin: 08/31/19 08:46 Dose: 10 ml Documented by: Tramadol HCl (Ultram) 50 mg PO TID PRN PRN Reason: Pain scale 2-4 (Mild) Stop: 09/29/19 20:04 ROS: CV: Denies chest pain RESP: Denies shortness of breath and cough : Denies dysuria, reports right side pelvic pain improving GI:Denies nausea, vomiting and diarrhea Objective: Temp Pulse Resp BP Pulse Ox 97.2 F 92 H 16 121/66 100 08/31/19 11:13 08/31/19 11:13 08/31/19 11:13 08/31/19 11:13 08/31/19 11:13 Labs: Sodium 143, potassium 3.5, BUN 5, creatinine 0.58, albumin 3.2, WBC 11.8, hemoglobin 12.3, hematocrit 35.6 Abd/pelvis CT 08/29: EXAM DESCRIPTION: CT - Abdomen Pelvis W Contrast - 08/30/2019 6:38 am CLINICAL HISTORY: The patient is 18 years old and is Female; ABD PAIN TECHNIQUE: Axial computed tomography images of the abdomen and pelvis with intravenous contrast. Sagittal and coronal reformatted images were created and reviewed. This CT exam was performed using one or more of the following dose reduction techniques: automated exposure control, adjustment of the mA and/or kV according to patient size, and/or use of iterative reconstruction technique. COMPARISON: No relevant prior studies available. FINDINGS: LUNG BASES: Unremarkable. No mass. No consolidation. ABDOMEN: LIVER: Unremarkable. No mass. GALLBLADDER AND BILE DUCTS: No calcified stones. No ductal dilation. PANCREAS: No ductal dilation. No mass. SPLEEN: Unremarkable. ADRENALS: Unremarkable. No mass. KIDNEYS AND URETERS: Unremarkable. The kidneys enhance symmetrically. No obstructing renal or ureteral calculus is seen. No hydronephrosis or hydroureter. No perinephric fluid or stranding. STOMACH AND BOWEL: The stomach is moderately distended with food contents. The small bowel distally is fluid-filled and prominent with suggestion of mucosal thickening. The remainder the small bowel is normal in appearance. A moderate amount stool is present throughout colon. There is no bowel obstruction. PELVIS: APPENDIX: The visualized portions of the appendix appear normal. However, the tip is not seen. BLADDER: Unremarkable. No mass. REPRODUCTIVE: A 1.9 cm right ovarian cyst is present. Tubular structure within the right lower quadrant is present concerning for dilated fallopian. The uterus is unremarkable. ABDOMEN and PELVIS: INTRAPERITONEAL SPACE: A moderate amount of free fluid is present within the pelvis. BONES/JOINTS: No acute fracture. SOFT TISSUES: The soft tissues are normal. VASCULATURE: Unremarkable. No abdominal aortic aneurysm. LYMPH NODES: Unremarkable. No enlarged lymph nodes. IMPRESSION: 1. Findings suggest dilated fallopian tube on the right. Moderate fluid and inflammation is also present within the right lower quadrant and adnexa. Findings may be secondary to a tubo-ovarian abscess. Further evaluation with pelvic ultrasound is recommended. 2. Visualized portions of the appendix are normal. However, the appendix is not seen in its entirety. Given the inflammation and fluid within the right lower quadrant, an orally contrasted study may be useful to further delineate the entire appendix. 3. Inflamed distal small bowel loops suggesting an enteritis. Transvaginal US 08/29: EXAM DESCRIPTION: US - Transvaginal Study Probe - 08/30/2019 7:48 am CLINICAL HISTORY: ABD PAIN COMPARISON: Abdomen Pelvis W Contrast dated 08/30/2019 TECHNIQUE: Endovaginal sonography was performed. FINDINGS: Endovaginal sonography was performed and correlated with the earlier CT study. Uterine size is normal. No myometrial mass identifiable. Endometrial stripe is 6 mm with no focal endometrial abnormality identifiable. Both ovaries are identifiable. Blood flow seen in the ovarian stroma. A 19 millimeter right ovarian cyst is identified low-level internal echoes. Heterogeneous poorly defined tissue is seen in the right adnexa. This has a somewhat tubular configuration consistent with the CT finding. Tubo-ovarian abscess would be a primary consideration and can be correlated with the lab and clinical findings. Hemorrhagic cyst is not suspected. No abnormal free fluid identifiable. IMPRESSION: No uterine abnormality or ovarian parenchymal abnormality seen. Heterogeneous poorly defined tissue in the right adnexa. Findings when correlated with the CT study are suspicious for tubo-ovarian abscess. ROS: General: Awake, alert, pleasant CV: S1,S2 RESP: Good breath sounds ABD: mild tenderness to suprapubic area Extremities: No edema Assessment and plan: Leukocytosis, blood cultures show no growth to date Tubal Ovarian abscess, pain improving, afebrile Covid 19 infection, asymptomatic Protein calorie malnourished Currently on Unasyn and Flagyl Upon discharge recommend Flagyl 500mg PO BID and Augmentin 500mg PO Q8h for total of 2 weeks Will continue to monitor Thank you for consult Patient discussed with Dr. Manuel
[2019-08-31] MEDS: ENOXAPARIN 40 MG/0.4 ML SQ SCH (16:02)
[2019-08-31 21:36] VITALS: O2SAT 95
[2019-09-01] MEDS: AMPICILLIN/SULBACT 3 GM in NA CHLORIDE 0.9% 100 ML IVPB SCH ×2 (00:16→09:00)
[2019-09-01] MEDS: METRONIDAZOLE 500mg IVPB 500 MG/100 ML BAG IV SCH ×2 (01:00→10:52)
[2019-09-01 06:49] LABS: Absolute Lymphocytes (CBC) 2.3 K/uL (0.7-4.9); Basophils % 0.7 % (0-1.3); Lymphocytes % 21.7 % (15.3-44.8); MPV 8.5 fL (7.6-11.3); RBC Red Blood Cell Count 4.38 M/uL (3.86-4.86)
[2019-09-01 06:58] LABS: ALT/SGPT 12 U/L (12-78); AST/SGOT 9 U/L (15-37); Albumin 3.1 g/dL (3.4-5.0); Alkaline Phosphatase 52 U/L (45-117); BUN Blood Urea Nitrogen 10 mg/dL (7-18); Bicarbonate 26 mmol/L (21-32); Bilirubin Total 0.6 mg/dL (0.2-1.0); Glucose Level 94 mg/dL (74-106); Magnesium 2.1 mg/dL (1.8-2.4); Potassium 3.7 mmol/L (3.5-5.1); Sodium Level 141 mmol/L (136-145)
[2019-09-01] MEDS: ENOXAPARIN 40 MG/0.4 ML SQ SCH (08:53)
--- NOTE | 2019-09-01 09:06 | DS ---
Reason For Admission: Possible salpingitis, pelvic inflammatory disease, tubo-ovarian abscess, leuko cytosis. She also happened to be coronavirus positive. Discharge Diagnoses: Possible tubo-ovarian abscess, pelvic inflammatory disease. The patient still is coronavirus positive, mostly asymptomatic. Hospital Course: This morning on history, she denies any pain, able to tolerate diet, ambulating and voiding without any problems. No shortness of breath, chest pain, any loss of smell, or appetite ch anges. She was on review of systems mostly negative. No vaginal discharge or bleeding. No lower ur inary tract symptoms. Bowels unremarkable. On objective examination, her temperature 98.7, her vital signs were stable. Head and neck exam on v isual inspection completely unremarkable. Heart and lung exam was not performed. Abdomen was soft, nondistended, nontender. Good bowel sounds. Extremities unremarkable. No edema or calf tenderness. The patient is doing well. No pelvic exam was performed. Then on labs, her white count was 10 tod ay, came down from 15 to 11 yesterday to 10 today. Rest of the lab and blood work also unremarkable. Assessment And Plan: 1.Tubo-ovarian abscess. The patient has been on Unasyn 3 g q.6 hours and Flagyl 500 q.8 hours for c lose to 48 hours. She has remained afebrile and is doing very well with complete resolution of pain. She can continue on oral antibiotics, Levaquin 750 one tablet daily and Flagyl 500 t.i.d. for 12 da ys to complete a 14 day course. She was counseled on her condition and recommended followup in a tue with her tunneling machine operator in [place] or she could call our office for an appointment. 2.Possible sexually transmitted infection. Prevention counseling was done. The possible etiology o f TOA could be related to gonorrhea or chlamydial transmission. Barrier protection was discussed wit h this patient. 3. control counseling was done. The patient was not at the time of admission, however , she is sexually active without any protection. So, on offering contraceptive, the patient declined this firmly. She was counseled on the risks of ectopic. 4.Positive for coronavirus. Although she does not have symptoms of COVID-19, all precautions were t aken in seeing the patient and all instructions were given to the patient for home quarantine, follow ing up her primary care, and repeat testing. She has been given good counseling on getting tested an d testing negative prior to any outpatient followup with any tunneling machine operator, either myself or her prima ry THIRD GRADE TEACHER. She understands the risks of transmission to people around. She also understands the develo pment of any symptoms. The patient has been almost 11 days since her diagnosis and still remains asy mptomatic. So, most likely she probably will have an unremarkable course. She will be given discharge medications, Levaquin and Flagyl, that will be called in and does not nee d any pain medication. She can be discharged by the hospitalist when deemed appropriate from rest of the conditions, but from the tubo-ovarian abscess standpoint, she is good for discharge. NISA Voice ID: [id number] Report ID: [id number]
[2019-09-01 09:21] VITALS: BP 102/58; TEMP 98.1
--- NOTE | 2019-09-01 11:08 | P.DS ---
Admission Date: 08/30/19 Discharge Date: 09/01/19 Disposition: ROUTINE DISCHARGE Reason for Admission: Tubal abscess Brief History of Present Illness: 18-year-old female with no significant past medical history presents to the emergency room complaining of sudden onset of right pelvic pain. Patient states that she woke up this morning with complaints of lower abdominal pain. Patient tested positive for COVID and was self quarantine eating at her great grandmother's house alone. Patient has no respiratory issues or complications from Covid so far. In the emergency room CT abdomen pelvis with findings suggest dilated fallopian tube on the right. Moderate fluid and inflammation is also present within the right lower quadrant and adnexa. Findings may be secondary to a tubo-ovarian abscess. Transvaginal ultrasound confirming CT findings. vice president of brand management was consulted and patient is to undergo surgical procedure to address tubal abscess. On physical exam patient is calm. Abdominal pain has improved after pain medic ation. She is alert and oriented x3 and in no distress. In the ER lab work shows a slightly elevated white cell count of 15.7 with an elevated ESR of 53. Vitals are stable and patient is afebrile. Patient be started on IV antibiotics. Patient will be admitted and further evaluated. Hospital Course: The patient was admitted and was monitored closely. Was started on IV antibiotics. CT findings noted. CYCLE TOURING GUIDE were consulted. Recommended conservative management with outpatient follow up. The patient is being discharged home today in a stable condition with advice to follow up with PCP in 1 week and also with OBGYN in 1-2 weeks Vital Signs/Physical Exam: Temp Pulse Resp BP Pulse Ox 98.1 F 81 16 102/58 L 99 09/01/19 08:00 09/01/19 08:00 09/01/19 08:00 09/01/19 08:00 09/01/19 08:00 General: Alert, In no apparent distress HEENT: Atraumatic, Normocephalic Neck: Supple Respiratory: Clear to auscultation bilaterally Cardiovascular: Normal pulses, Regular rate/rhythm, Normal S1 S2 Capillary refill: <2 Seconds Gastrointestinal: Soft and benign, W/out hepatosplenomegaly, No tenderness Musculoskeletal: No clubbing, No swelling Integumentary: No rashes Neurological: Normal speech, Normal strength at 5/5 x4 extr Lymphatics: No axilla or inguinal lymphadenopathy Laboratory Data at Discharge: WBC 10.4 K/uL (4.3-10.9) 09/01/19 06:04 Hgb 12.4 g/dL (12.0-15.0) 09/01/19 06:04 Hct 36.0 % (36.0-45.0) 09/01/19 06:04 Plt Count 362 K/uL (152-406) 09/01/19 06:04 Sodium 141 mmol/L (136-145) 09/01/19 06:04 Potassium 3.7 mmol/L (3.5-5.1) 09/01/19 06:04 BUN 10 mg/dL (7-18) 09/01/19 06:04 Creatinine 0.58 mg/dL (0.55-1.3) 09/01/19 06:04 Glucose 94 mg/dL (74-106) 09/01/19 06:04 Magnesium 2.1 mg/dL (1.8-2.4) 09/01/19 06:04 Total Bilirubin 0.6 mg/dL (0.2-1.0) 09/01/19 06:04 AST 9 U/L (15-37) L 09/01/19 06:04 ALT 12 U/L (12-78) 09/01/19 06:04 Alkaline Phosphatase 52 U/L (45-117) 09/01/19 06:04 Lipase 78 U/L (73-393) 08/30/19 04:05 Home Medications: levoFLOXacin [Levaquin] 750 mg PO DAILY 12 Days #12 tab 09/01/19 metroNIDAZOLE [Flagyl] 500 mg PO TID 12 Days #36 tablet 09/01/19 New Medications: metroNIDAZOLE [Flagyl] 500 mg PO TID 12 Days #36 tablet levoFLOXacin [Levaquin] 750 mg PO DAILY 12 Days #12 tab Diet: Regular Activity: Ad ford Time spent managing pt's care (in minutes): 35
[2019-09-05 20:39] LABS: C.trachomatis RNA,TMA Detected (Not Detected)
== END 2019-09-01 11:45 | disposition home or self-care (01) | DRG 757 ==
LOC: ER 04:01 → ERHOLD 10:34 → 4TH 20:13
PROVIDERS: ADMIT Family Medicine; ATTEND Family Medicine
DX: N70.93 Salpingitis and oophoritis, unspecified (principal); U07.1 COVID-19; E46 Unspecified protein-calorie malnutrition; A54.9 Gonococcal infection, unspecified; D72.829 Elevated white blood cell count, unspecified; A56.8 Sexually transmitted chlamydial infection of other sites; Z30.09 Encounter for other general counseling and advice on contraception; Z68.25 Body mass index [BMI] 25.0-25.9, adult
CPT/HCPCS: 36415; 74177; 76830; 80048; 80053; 80076; 81003; 81015; 83605; 83690; 83735; 84145; 85025; 85652; 87040; 87086; 87088; 87490; 87590; 96361; 96365; 96367; 96375; 99284; J0295; J1650; J2270; J2405; J7030; Q9967